=== PATIENT | female | born 1970 | race Caucasian/White ===

== ENCOUNTER 2021-01-18 16:27 | Emergency (ER) | payer OTHER ==
[~2021-01-18] VITALS: Ht 167.6 cm; Wt 59.0 kg
[2021-01-18 16:53] VITALS: BP 112/70
== END 2021-01-18 17:06 | disposition left against medical advice (07) ==
LOC: ER 16:27
DX: M25.561 Pain in right knee (principal); Z53.21 Procedure and treatment not carried out due to patient leaving prior to being seen by health care provider